=== PATIENT | male | born 1995 | race African-American/Black ===

== ENCOUNTER 2023-03-07 13:50 | Observation (INO) ==
[2023-03-07] MEDS ORDERED: SODIUM CHLORIDE 0.9% 1,000 ML IV STA (14:00)
[2023-03-07] MEDS ORDERED: ONDANSETRON INJ 2 MG/ML 2 ML VIAL IV STA ×2 (14:25→16:06)
[2023-03-07] MEDS ORDERED: ACETAMINOPHEN 1,000 MG/100 ML VIAL IV STA (14:25)
--- NOTE | 2023-03-07 14:44 | Emergency Department Note ---
Impression & Plan Abdominal pain, Nausea & vomiting ED Provider Note CHIEF COMPLAINT: Abdominal pain HISTORY OF PRESENT ILLNESS: This 27 year old male patient presents to the emergency department via private vehicle for evaluation of abdominal pain. Pt. states symptoms started early this morning. Pt. states the pain is in the middle of the abdomen. Does admit to drinking 4 beers last night. States the pain is severe and there is nausea and vomiting associated with the pain. The patient states that he has never had any abdominal surgeries. Has never had similar symptoms. Patient denies any diarrhea or constipation. No vomiting blood. He has had a sore throat for the past 2 days. No fever or other illness. No dysuria, urinary frequency, urinary hesitancy, hematuria REVIEW OF SYSTEMS: A 10 system review of systems was performed with positives and pertinent negatives listed in the history of present illness. All other systems were reviewed and are negative. ALLERGIES: NKDA PHYSICAL EXAM: VITALS: Vitals are noted on the nurse's note and reviewed by myself. Vital signs stable. GENERAL: This is a 27-year-old male, in no acute distress, nondiaphoretic, well- developed well-nourished. SKIN: The skin was without rashes, erythema, edema, or bruising. There is no tenting of the skin. Capillary refill less than 2 seconds. HEAD: Normocephalic atraumatic. EYES: Conjunctivae without injection, sclerae without icterus. NECK: Supple without nuchal rigidity. No lymphadenopathy. No JVD. HEART: Regular rate and rhythm without murmurs gallops or rubs. LUNGS: Clear to auscultation bilaterally without wheezes, rales or rhonchi. No retractions or accessory muscle use. ABDOMEN: Positive bowel sounds x 4. Periumbilical tenderness to palpation. No tenderness over McBurney's point. Abdomen is otherwise soft, nontender, without masses or organomegaly. Castellanos sign negative. No guarding or rebound tenderness. MUSCULOSKELETAL: No muscle atrophy, erythema, or edema noted. Full range of motion without joint tenderness in all extremities. No tenderness to palpation. Normal gait. Strength 5/5 throughout. NEURO: Patient was alert and oriented to person place and time. No focal neurological deficits. An order was placed for continuous cardiac catheterization technician. The monitor showed a normal sinus rhythm at a ventricular rate of 95 bpm, per my interpretation. EMERGENCY DEPARTMENT COURSE: The patient was seen and evaluated as above. The patient is here with abdominal pain. This was periumbilical which started suddenly this morning. It was associated with intractable nausea and vomiting. The patient presents to the emergency department for evaluation. On initial evaluation, the patient is tachycardic. He is afebrile. IV access was obtained, labs are drawn. Patient was medicated with IV fluids and Zofran. Labs were reviewed. Per my interpretation, there is a mild leukocytosis of 11,000. No anemia or thrombocytopenia. Renal, hepatic function and electrolytes without significant abnormality. Bilirubin mildly elevated at 1.4. Urinalysis positive for 3+ ketones, no bladder infection. Urine drug screen positive for marijuana. CT imaging performed reviewed by myself radiologist as noted. There were no acute findings, though the stomach was somewhat distended and fluid-filled. On re-evaluation, the patient continued to complain of nausea and abdominal p ain. He was given a second liter of IV fluids and Zofran. Patient was medicated with Toradol and acetaminophen while here. Patient was reassessed. He is starting to feel somewhat better. We did a p.o. trial with a cup of water. The patient drank the water and shortly thereafter complained of severe abdominal cramping and pain. He was requesting additional water and nursing staff was advised to hold any further p.o. intake at this time. Patient was again reassessed. I was notified at this time that the patient had vomited approximately 1300 cc brown in color but clear liquid. No coffee ground emesis. I did assess the patient. He is complaining of persistent nausea and worsening abdominal pain. I discussed the case with my attending physician. Repeat CBC was completed. Nursing staff asked that I order a Gastroccult study on the emesis to evaluate for blood. This was placed. This test was negative. Patient was medicated with IV Reglan and Benadryl. He was given 4 mg IV morphine. Patient was again reassessed. He states he is starting to feel somewhat better. At this time, he remains tachycardic. He has not had any further episodes of vomiting. I did recommend admission due to his persistent pain, tachycardia, and nausea/vomiting. The patient was agreeable. Unclear whether the patient's symptoms may be associated with gastroenteritis, gastroparesis, cyclic vomiting, or others. Do recommend admission/observation to determine whether or not the patient's symptoms improved. I discussed the case with Manuelito Ingram PA-C with [facility]. He did agree to see and evaluate the patient. Please see hospitalist dictation regarding ongoing management care of this patient. Differential diagnosis includes appendicitis, diverticulitis, obstruction, inflammatory bowel disease, renal colic, PUD, biliary pathology, pancreatitis, mesenteric ischemia, aortic pathology, infections, genitourinary, UTI, perforated viscus, as well as others were entertained. I attest that I have personally reviewed the patient's current medication list. Patient was found to have an elevated blood pressure and was referred to their primary doctor for recheck and further treatment. The chart was completed utilizing [employer] voice recognition software. Grammatical errors, random word insertions, pronoun errors, and incomplete sentences are an occasional consequence of this system due to software limitations, ambient noise, and hardware issues. Any formal questions or concerns about the content, text, or information contained within the body of th is dictation should be directly addressed to the provider for clarification. Past Med/Surg History Medical History No pertinent past medical history Social History Smoking Status: Current every day smoker Preferred Language: Bulgarian Feels Safe at Home: Yes Allergies Allergies Allergy/AdvReac Type Severity Reaction Status Date / Time No Known Allergies Allergy Unverified 03/07/23 19:35 Home Meds Home Medications Medication Instructions Recorded Confirmed None (Patient States No Home Meds) ##0 10/20/10 Results & Data (ED) Vital Signs Vital Signs - 24 hr 03/07/23 13:53 03/07/23 14:00 03/07/23 14:21 Temperature 35.8 C L Temperature Source Temporal Artery Scan Pulse Rate 95 H 104 H 103 H Pulse Rate from SpO2 Sensor Pulse Rhythm Regular Regular Pulse Strength Normal Respiratory Rate 22 27 H 27 H Respiratory Depth Normal Blood Pressure 148/102 H Blood Pressure Mean 117 Blood Pressure Position Sitting Pulse Oximetry 97 100 Oxygen Delivery Method Room Air Room Air Oxygen Flow Rate Sepsis Recent Fever Within 48 Hours No Sepsis New/Unexplained Change in Mental Status No Sepsis Action Taken by Nursing No Action Required 03/07/23 14:25 03/07/23 14:30 03/07/23 14:40 Temperature Temperature Source Pulse Rate 100 H 81 78 Pulse Rate from SpO2 Sensor 99 H 90 74 Pulse Rhythm Pulse Strength Respiratory Rate 23 40 H 23 Respiratory Depth Blood Pressure 136/90 Blood Pressure Mean 105 Blood Pressure Position Pulse Oximetry 99 100 97 Oxygen Delivery Method Oxygen Flow Rate Sepsis Recent Fever Within 48 Hours Sepsis New/Unexplained Change in Mental Status Sepsis Action Taken by Nursing 03/07/23 14:50 03/07/23 15:00 03/07/23 15:10 Temperature Temperature Source Pulse Rate 72 56 L 65 Pulse Rate from SpO2 Sensor 70 57 L 65 Pulse Rhythm Pulse Strength Respiratory Rate 19 9 L 21 Respiratory Depth Blood Pressure Blood Pressure Mean Blood Pressure Position Pulse Oximetry 98 66 L 98 Oxygen Delivery Method Room Air Nasal Cannula Oxygen Flow Rate 2 Sepsis Recent Fever Within 48 Hours Sepsis New/Unexplained Change in Mental Status Sepsis Action Taken by Nursing 03/07/23 15:24 03/07/23 15:30 03/07/23 15:40 Temperature Temperature Source Pulse Rate 91 H 85 87 Pulse Rate from SpO2 Sensor 92 H 85 90 Pulse Rhythm Pulse Strength Respiratory Rate 16 19 20 Respiratory Depth Blood Pressure Blood Pressure Mean Blood Pressure Position Pulse Oximetry 98 98 99 Oxygen Delivery Method Nasal Cannula Oxygen Flow Rate 2 Sepsis Recent Fever Within 48 Hours Sepsis New/Unexplained Change in Mental Status Sepsis Action Taken by Nursing 03/07/23 15:50 03/07/23 16:00 03/07/23 16:04 Temperature Temperature Source Pulse Rate 72 106 H 94 H Pulse Rate from SpO2 Sensor 70 106 H 94 H Pulse Rhythm Pulse Strength Respiratory Rate 11 L 20 20 Respiratory Depth Blood Pressure 161/102 H Blood Pressure Mean 121 Blood Pressure Position Pulse Oximetry 100 100 100 Oxygen Delivery Method Oxygen Flow Rate Sepsis Recent Fever Within 48 Hours Sepsis New/Unexplained Change in Mental Status Sepsis Action Taken by Nursing 03/07/23 16:10 03/07/23 16:20 03/07/23 16:29 Temperature Temperature Source Pulse Rate 97 H 98 H Pulse Rate from SpO2 Sensor 99 H 97 H Pulse Rhythm Pulse Strength Respiratory Rate 22 19 Respiratory Depth Blood Pressure 145/94 H Blood Pressure Mean 112 Blood Pressure Position Pulse Oximetry 96 100 Oxygen Delivery Method Oxygen Flow Rate Sepsis Recent Fever Within 48 Hours Sepsis New/Unexplained Change in Mental Status Sepsis Action Taken by Nursing 03/07/23 16:29 03/07/23 16:30 03/07/23 16:40 Temperature Temperature Source Pulse Rate 68 55 L 73 Pulse Rate from SpO2 Sensor 68 61 71 Pulse Rhythm Pulse Strength Respiratory Rate 17 14 14 Respiratory Depth Blood Pressure Blood Pressure Mean Blood Pressure Position Pulse Oximetry 99 98 85 L Oxygen Delivery Method Room Air Oxygen Flow Rate Sepsis Recent Fever Within 48 Hours Sepsis New/Unexplained Change in Mental Status Sepsis Action Taken by Nursing 03/07/23 16:50 03/07/23 17:00 03/07/23 17:10 Temperature Temperature Source Pulse Rate 78 91 H 89 Pulse Rate from SpO2 Sensor 88 90 91 H Pulse Rhythm Pulse Strength Respiratory Rate 25 H 22 19 Respiratory Depth Blood Pressure Blood Pressure Mean Blood Pressure Position Pulse Oximetry 93 96 97 Oxygen Delivery Method Nasal Cannula Nasal Cannula Oxygen Flow Rate 2 2 Sepsis Recent Fever Within 48 Hours Sepsis New/Unexplained Change in Mental Status Sepsis Action Taken by Nursing 03/07/23 17:20 03/07/23 17:30 03/07/23 17:40 Temperature Temperature Source Pulse Rate 102 H 106 H 92 H Pulse Rate from SpO2 Sensor 100 H 105 H 93 H Pulse Rhythm Pulse Strength Respiratory Rate 12 19 20 Respiratory Depth Blood Pressure Blood Pressure Mean Blood Pressure Position Pulse Oximetry 98 100 98 Oxygen Delivery Method Nasal Cannula Oxygen Flow Rate 2 Sepsis Recent Fever Within 48 Hours Sepsis New/Unexplained Change in Mental Status Sepsis Action Taken by Nursing 03/07/23 17:50 03/07/23 18:00 03/07/23 18:10 Temperature Temperature Source Pulse Rate 85 83 86 Pulse Rate from SpO2 Sensor 85 82 81 Pulse Rhythm Pulse Strength Respiratory Rate 20 15 17 Respiratory Depth Blood Pressure Blood Pressure Mean Blood Pressure Position Pulse Oximetry 99 100 98 Oxygen Delivery Method Nasal Cannula Oxygen Flow Rate 2 Sepsis Recent Fever Within 48 Hours Sepsis New/Unexplained Change in Mental Status Sepsis Action Taken by Nursing 03/07/23 18:20 03/07/23 18:30 03/07/23 18:40 Temperature Temperature Source Pulse Rate 93 H 90 Pulse Rate from SpO2 Sensor 96 H 92 H Pulse Rhythm Pulse Strength Respiratory Rate 4 L 16 Respiratory Depth Blood Pressure 135/92 Blood Pressure Mean 105 Blood Pressure Position Pulse Oximetry 99 99 Oxygen Delivery Method Nasal Cannula Nasal Cannula Oxygen Flow Rate 2 2 Sepsis Recent Fever Within 48 Hours Sepsis New/Unexplained Change in Mental Status Sepsis Action Taken by Nursing 03/07/23 18:40 Temperature Temperature Source Pulse Rate 101 H Pulse Rate from SpO2 Sensor 100 H Pulse Rhythm Pulse Strength Respiratory Rate 15 Respiratory Depth Blood Pressure Blood Pressure Mean Blood Pressure Position Pulse Oximetry 100 Oxygen Delivery Method Nasal Cannula Oxygen Flow Rate 2 Sepsis Recent Fever Within 48 Hours Sepsis New/Unexplained Change in Mental Status Sepsis Action Taken by Nursing Laboratory Data 03/07/23 14:20 03/07/23 14:20 Lab Results 03/07/23 03/07/23 03/07/23 Range/Units 14:20 14:20 19:38 WBC 11.65 H 14.75 H (4.8-10.8) K/ul RBC 5.84 5.05 (4.70-6.10) M/uL Hgb 17.9 15.6 (14.0-18.0) g/dl Hct 48.1 42.2 (42.0-52.0) % MCV 82.4 83.6 (80.0-100.0) fL MCH 30.7 30.9 (25.0-34.0) pg MCHC 37.2 H 37.0 H (32.0-36.0) g/dL RDW Std Deviation 37.2 38.9 (36.4-46.3) fL RDW Coeff of Edwin 12.5 12.8 (11.5-14.5) % Plt Count 249 310 (130-400) K/uL MPV 10.2 9.8 (9.4-12.4) fL Immature Gran % (Auto) 0.3 0.3 % Neut % (Auto) 89.7 88.1 % Lymph % (Auto) 5.7 5.5 % [place] % (Auto) 3.9 5.7 % Eos % (Auto) 0.0 0.1 % Baso % (Auto) 0.4 0.3 % Neut # (Auto) 10.45 H 12.99 H (1.40-6.50) K/uL Lymph # (Auto) 0.66 L 0.81 L (1.20-3.40) K/uL Rout[place] # (Auto) 0.45 0.84 H (0.11-0.59) K/uL Eos # (Auto) 0.00 0.01 (0.00-0.50) K/uL Baso # (Auto) 0.05 0.05 (0.00-0.20) K/uL Immature Gran # (Auto) 0.04 0.05 (0.01-0.20) K/uL Platelet Estimate Normal (Normal) Sodium 136 (136-145) mmol/L Potassium 3.7 (3.5-5.1) mmol/L Chloride 100 (98-107) mmol/L Carbon Dioxide 19 L (21-32) mmol/L Anion Gap 17 H (3-11) BUN 13 (6-23) mg/dl Creatinine 0.90 (0.6-1.4) mg/dl Est Cr Clr Drug Dosing 140.7 ml/min Est GFR ( Amer) 133.3 ml/min Est GFR (Non-Af Amer) 115.0 ml/min BUN/Creatinine Ratio 14.4 (10-20) Glucose 88 (70-99(Fasting)) mg/dl Calcium 10.4 H (8.6-10.3) mg/dl Total Bilirubin 1.4 H (0.2-1.0) mg/dl AST 27 (13-39) U/L ALT 25 (7-52) U/L Alkaline Phosphatase 62 (34-104) U/L Total Protein 9.5 H (6.0-8.3) gm/dl Albumin 5.2 H (3.4-5.0) gm/dl Globulin 4.3 H (2.5-4.0) gm/dl Albumin/Globulin Ratio 1.2 (0.9-2) Lipase 6 L (11-82) U/L Urine Color Urine Appearance (Clear) Urine pH (4.5-7.5) Ur Specific [place] (1.000-1.030) Urine Protein (Negative) Urine Glucose (UA) (Negative) Urine Ketones (Negative) Urine Blood (Negative) Urine Nitrite (Negative) Urine Bilirubin (Negative) Urine Urobilinogen (Negative) Ur Leukocyte Esterase (Negative) Urine WBC (Auto) (0-5) /hpf Urine RBC (Auto) (0-4) /hpf U Hyaline Cast (Auto) (0-5) /lpf U Epithel Cells (Auto) (0-5) /lpf Urine Bacteria (Auto) (Negative) Gastric Fluid pH Gastric Occult Blood (Negative) Urine Opiates Screen (Neg) Ur Methadone, Qual (Neg) Urine Barbiturates (Neg) Ur Phencyclidine (PCP) (Neg) U Amphetamin/Meth Scrn (Neg) MDMA (Ecstasy) Screen (Neg) U Benzodiazepines Scrn (Neg) Ur Cocaine Metabolite (Neg) U Marijuana (THC) Screen (Neg) 03/07/23 03/07/23 03/07/23 Range/Units Unknown Unknown Unknown WBC (4.8-10.8) K/ul RBC (4.70-6.10) M/uL Hgb (14.0-18.0) g/dl Hct (42.0-52.0) % MCV (80.0-100.0) fL MCH (25.0-34.0) pg MCHC (32.0-36.0) g/dL RDW Std Deviation (36.4-46.3) fL RDW Coeff of Edwin (11.5-14.5) % Plt Count (130-400) K/uL MPV (9.4-12.4) fL Immature Gran % (Auto) % Neut % (Auto) % Lymph % (Auto) % [place] % (Auto) % Eos % (Auto) % Baso % (Auto) % Neut # (Auto) (1.40-6.50) K/uL Lymph # (Auto) (1.20-3.40) K/uL [place] # (Auto) (0.11-0.59) K/uL Eos # (Auto) (0.00-0.50) K/uL Baso # (Auto) (0.00-0.20) K/uL Immature Gran # (Auto) (0.01-0.20) K/uL Platelet Estimate (Normal) Sodium (136-145) mmol/L Potassium (3.5-5.1) mmol/L Chloride (98-107) mmol/L Carbon Dioxide (21-32) mmol/L Anion Gap (3-11) BUN (6-23) mg/dl Creatinine (0.6-1.4) mg/dl Est Cr Clr Drug Dosing ml/min Est GFR ( Amer) ml/min Est GFR (Non-Af Amer) ml/min BUN/Creatinine Ratio (10-20) Glucose (70-99(Fasting)) mg/dl Calcium (8.6-10.3) mg/dl Total Bilirubin (0.2-1.0) mg/dl AST (13-39) U/L ALT (7-52) U/L Alkaline Phosphatase (34-104) U/L Total Protein (6.0-8.3) gm/dl Albumin (3.4-5.0) gm/dl Globulin (2.5-4.0) gm/dl Albumin/Globulin Ratio (0.9-2) Lipase (11-82) U/L Urine Color Yellow Urine Appearance Clear (Clear) Urine pH 8.0 H (4.5-7.5) Ur Specific [place] > 1.045 H (1.000-1.030) Urine Protein 1+ H (Negative) Urine Glucose (UA) Negative (Negative) Urine Ketones 3+ H (Negative) Urine Blood Negative (Negative) Urine Nitrite Negative (Negative) Urine Bilirubin Negative (Negative) Urine Urobilinogen Negative (Negative) Ur Leukocyte Esterase Negative (Negative) Urine WBC (Auto) 1-5 (0-5) /hpf Urine RBC (Auto) 0-4 (0-4) /hpf U Hyaline Cast (Auto) 1-5 (0-5) /lpf U Epithel Cells (Auto) >30 H (0-5) /lpf Urine Bacteria (Auto) Negative (Negative) Gastric Fluid pH 2 Gastric Occult Blood Negative (Negative) Urine Opiates Screen Neg (Neg) Ur Methadone, Qual Neg (Neg) Urine Barbiturates Neg (Neg) Ur Phencyclidine (PCP) Neg (Neg) U Amphetamin/Meth Scrn Neg (Neg) MDMA (Ecstasy) Screen Neg (Neg) U Benzodiazepines Scrn Neg (Neg) Ur Cocaine Metabolite Neg (Neg) U Marijuana (THC) Screen Pos H (Neg) Administered Medications Discontinued Medications Diphenhydramine HCl (Diphenhydramine 50 Mg/Ml Vial) 12.5 mg IV NOW STA Stop: 03/07/23 18:07 Last Admin: 03/07/23 18:21 Dose: 12.5 mg Documented By: STATISTICAL MACHINE SERVICER Sodium Chloride (Nss) 1,000 mls @ 999 mls/hr IV .Q1H1M STA Stop: 03/07/23 15:00 Last Infusion: 03/07/23 16:14 Dose: 0 mls/hr Documented By: STATISTICAL MACHINE SERVICER Admin: 03/07/23 14:40 Dose: 999 mls/hr Documented By: STATISTICAL MACHINE SERVICER Acetaminophen (Ofirmev) 1,000 mg in 100 mls @ 400 mls/hr IV NOW STA Stop: 03/07/23 14:39 Last Infusion: 03/07/23 15:01 Dose: 0 mls/hr Documented By: STATISTICAL MACHINE SERVICER Admin: 03/07/23 14:36 Dose: 400 mls/hr Documented By: SARATH Sodium Chloride (Nss) 1,000 mls @ 999 mls/hr IV .Q1H1M ONE Stop: 03/07/23 17:42 Last Infusion: 03/07/23 18:03 Dose: 0 mls/hr Documented By: STATISTICAL MACHINE SERVICER Admin: 03/07/23 16:52 Dose: 999 mls/hr Documented By: CARINE Ioversol (Optiray 320 100ml) 94 ml IV ONCE ONE Stop: 03/07/23 15:23 Last Admin: 03/07/23 15:22 Dose: 94 ml Documented By: RIZWANA Ketorolac Tromethamine (Ketorolac Tromethamine 15 Mg/Ml Vial) 15 mg IV NOW STA Stop: 03/07/23 16:07 Last Admin: 03/07/23 16:20 Dose: 15 mg Documented By: SARATH Metoclopramide HCl (Metoclopramide Hcl Inj 5 Mg/Ml 2 Ml Vial) 10 mg IV NOW STA Stop: 03/07/23 18:07 Last Admin: 03/07/23 18:21 Dose: 10 mg Documented By: STATISTICAL MACHINE SERVICER Morphine Sulfate (Morphine Sulfate 4 Mg/Ml 1 Ml Carp\Vial) 4 mg IV NOW STA Stop: 03/07/23 18:04 Last Admin: 03/07/23 18:21 Dose: 4 mg Documented By: STATISTICAL MACHINE SERVICER Ondansetron HCl (Ondansetron Inj 2 Mg/Ml 2 Ml Vial) 4 mg IV NOW STA Stop: 03/07/23 14:26 Last Admin: 03/07/23 14:37 Dose: 4 mg Documented By: STATISTICAL MACHINE SERVICER Ondansetron HCl (Ondansetron Inj 2 Mg/Ml 2 Ml Vial) 4 mg IV NOW STA Stop: 03/07/23 16:07 Last Admin: 03/07/23 16:20 Dose: 4 mg Documented By: STATISTICAL MACHINE SERVICER Imaging Data Radiologist's Impression: Chest X-Ray 03/07/23 14:01 XR chest 1V portable CLINICAL HISTORY: Epigastric pain. COMPARISON STUDY: No previous studies for comparison. FINDINGS: Lung volumes are normal. Lungs are clear. There is no pneumothorax or pleural effusion. Cardiac size is normal. Mediastinal contours are normal. There is no evidence for pulmonary edema. IMPRESSION: No acute cardiopulmonary findings. ACT 112: Negative or not required by law. Electronically signed by: Taiwo Stock M.D. 03/07/2023 3:34 PM Abdomen/Pelvis CT 03/07/23 14:25 CT OF THE ABDOMEN AND PELVIS WITH CONTRAST CLINICAL HISTORY: Periumbilical pain. COMPARISON STUDY: None. TECHNIQUE: Following IV administration of 94 mL of Optiray, axial images of the abdomen and pelvis were obtained from the lung bases to the proximal femurs. Images were reviewed in the axial, sagittal, and coronal planes. IV contrast was administered without complication. Automated exposure control was utilized for the study. A dose lowering technique was utilized adhering to the principles of ALARA. CT DOSE: 1487.08 mGy.cm FINDINGS: Lung bases are unremarkable. No pneumatosis, free air or portal venous gas is present. An 8 mm hypodense segment 7 hepatic lesion is too small to characterize but is likely benign. Stomach is mildly distended and fluid-filled. Spleen, adrenal glands, kidneys and pancreas are unremarkable. There is no biliary or pancreatic ductal dilatation. There is no peripancreatic or pericholecystic infiltration. There is no hydronephrosis. 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 The appendix is normal. The caliber and wall thickness of small and large bowel are normal. There is no ascites or l ymphadenopathy. No fluid collections are identified. Major vasculature is patent. IMPRESSION: 1. Normal appendix. No bowel obstruction. No bowel wall thickening. 2. Mildly distended, fluid-filled stomach. ACT 112: Negative or not required by law. Electronically signed by: Taiwo Stock M.D. 03/07/2023 3:30 PM Discharge Plan Visit Data Chief Complaint: Abdominal Pain Stated Complaint: ABDOMINAL PAIN ED Provider: Ayaka Tinsley ED Midlevel Provider: Raven Freeman Discharge Problem: Abdominal pain, Nausea & vomiting Patient Disposition: Admitted As Inpatient Forms Stand Alone Forms: [facility], [facility] Emergency Department, Important Visit Information Prescriptions Prescriptions: No Action None (Patient States No Home Meds) . Qty: 0 Referrals Referrals: PCP,NO [Primary Care Provider] -
[2023-03-07 14:52] LABS: Albumin Globulin Ratio 1.2 (0.9-2); Albumin Level 5.2 gm/dl (3.4-5.0); BUN Creatinine Ratio 14.4 (10-20); Bilirubin,Total 1.4 mg/dl (0.2-1.0); Calcium 10.4 mg/dl (8.6-10.3); Creatinine Clr Calc Pharmacy 140.7 ml/min; Est GFR (African American) 133.3 ml/min; Globulin 4.3 gm/dl (2.5-4.0); Potassium 3.7 mmol/L (3.5-5.1); Total Protein 9.5 gm/dl (6.0-8.3)
[2023-03-07 15:05] LABS: Basophils # (auto) 0.05 K/uL (0.00-0.20); Basophils % (auto) 0.4 %; Hematocrit (blood only) 48.1 % (42.0-52.0); Hemoglobin 17.9 g/dl (14.0-18.0); Immature Granulocytes # (auto) 0.04 K/uL (0.01-0.20); Immature Granulocytes % (auto) 0.3 %; Lymphocytes # (auto) 0.66 K/uL (1.20-3.40); Lymphocytes % (auto) 5.7 %; Mean Corpuscular Hemoglobin 30.7 pg (25.0-34.0); Mean Corpuscular Hgb Conc 37.2 g/dL (32.0-36.0); Mean Corpuscular Volume 82.4 fL (80.0-100.0); Mean Platelet Volume 10.2 fL (9.4-12.4); Monocytes # (auto) 0.45 K/uL (0.11-0.59); Monocytes % (auto) 3.9 %; Neutrophils # (auto) 10.45 K/uL (1.40-6.50); Neutrophils % (auto) 89.7 %; Platelet Count 249 K/uL (130-400); Platelet Estimate Normal (Normal); RDW Coefficient of Variation 12.5 % (11.5-14.5); RDW Standard Deviation 37.2 fL (36.4-46.3); Red Blood Count 5.84 M/uL (4.70-6.10); White Blood Count 11.65 K/ul (4.8-10.8)
[2023-03-07] MEDS ORDERED: OPTIRAY 320 100ml IV ONE (15:22)
--- NOTE | 2023-03-07 15:32 | CT Scan Report ---
CT OF THE ABDOMEN AND PELVIS WITH CONTRAST CLINICAL HISTORY: Periumbilical pain. COMPARISON STUDY: None. TECHNIQUE: Following IV administration of 94 mL of Optiray, axial images of the abdomen and pelvis we re obtained from the lung bases to the proximal femurs. Images were reviewed in the axial, sagittal, and coronal planes. IV contrast was administered without complication. Automated exposure control wa s utilized for the study. A dose lowering technique was utilized adhering to the principles of ALARA . CT DOSE: 1487.08 mGy.cm FINDINGS: Lung bases are unremarkable. No pneumatosis, free air or portal venous gas is present. An 8 mm hypodense segment 7 hepatic lesion is too small to characterize but is likely benign. Stomach is mildly distended and fluid-filled. Spleen, adrenal glands, kidneys and pancreas are unremarkable. The re is no biliary or pancreatic ductal dilatation. There is no peripancreatic or pericholecystic infil tration. There is no hydronephrosis. 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 The appendix is normal. The caliber and wall thickness of small and large bowel are normal. There is no ascites or lymphadenopathy. No fluid collections are identified. Major vasculature is patent. IMPRESSION: 1. Normal appendix. No bowel obstruction. No bowel wall thickening. 2. Mildly distended, fluid-filled stomach. ACT 112: Negative or not required by law. Electronically signed by: Taiwo Stock M.D. 03/07/2023 3:30 PM
--- NOTE | 2023-03-07 15:35 | XRay Report ---
XR chest 1V portable CLINICAL HISTORY: Epigastric pain. COMPARISON STUDY: No previous studies for comparison. FINDINGS: Lung volumes are normal. Lungs are clear. There is no pneumothorax or pleural effusion. Car diac size is normal. Mediastinal contours are normal. There is no evidence for pulmonary edema. IMPRESSION: No acute cardiopulmonary findings. ACT 112: Negative or not required by law. Electronically signed by: Taiwo Stock M.D. 03/07/2023 3:34 PM
[2023-03-07] MEDS ORDERED: KETOROLAC TROMETHAMINE 15 MG/ML VIAL IV STA (16:06)
[2023-03-07 16:22] LABS: Appearance Urine Clear (Clear); Bacteria Urine Automated Negative (Negative); Bilirubin Urine Negative (Negative); Blood Urine Negative (Negative); Color Urine Yellow; Epithelial Cell Urine Auto >30 /lpf (0-5); Glucose Urine UA Negative (Negative); Ketones Urine 3+ (Negative); Leukocyte Esterase Urine Negative (Negative); Nitrite Urine Negative (Negative); Protein Urine 1+ (Negative); RBC Urine Automated 0-4 /hpf (0-4); Specific Gravity Urine > 1.045 (1.000-1.030); Urobilinogen Urine Negative (Negative)
[2023-03-07] MEDS ORDERED: SODIUM CHLORIDE 0.9% 1,000 ML IV ONE (16:42)
[2023-03-07 16:55] LABS: Amphetamines+Metham, Urine Neg (Neg); Barbiturates, Urine Neg (Neg); Benzodiazepine, Urine Neg (Neg); Cocaine, Urine Neg (Neg); MDMA (Ecstacy), Urine Neg (Neg); Methadone, Urine Neg (Neg); Opiate, Urine Neg (Neg); Phencyclidine, Urine Neg (Neg)
[2023-03-07] MEDS ORDERED: MoRPHine SULFATE 4 MG/ML 1 ML CARP\\VIAL IV STA (18:03)
[2023-03-07] MEDS ORDERED: METOCLOPRAMIDE HCL INJ 5 MG/ML 2 ML VIAL IV STA (18:06)
[2023-03-07] MEDS ORDERED: diphenhydrAMINE 50 MG/ML VIAL IV STA (18:06)
[2023-03-07 18:34] LABS: Gastric Occult Blood Negative (Negative); pH Gastric Fluid 2
[2023-03-07 19:56] LABS: Basophils # (auto) 0.05 K/uL (0.00-0.20); Basophils % (auto) 0.3 %; Eosinophils # (auto) 0.01 K/uL (0.00-0.50); Eosinophils % (auto) 0.1 %; Hematocrit (blood only) 42.2 % (42.0-52.0); Hemoglobin 15.6 g/dl (14.0-18.0); Immature Granulocytes # (auto) 0.05 K/uL (0.01-0.20); Immature Granulocytes % (auto) 0.3 %; Lymphocytes # (auto) 0.81 K/uL (1.20-3.40); Lymphocytes % (auto) 5.5 %; Mean Corpuscular Hemoglobin 30.9 pg (25.0-34.0); Mean Corpuscular Volume 83.6 fL (80.0-100.0); Mean Platelet Volume 9.8 fL (9.4-12.4); Monocytes # (auto) 0.84 K/uL (0.11-0.59); Monocytes % (auto) 5.7 %; Neutrophils # (auto) 12.99 K/uL (1.40-6.50); Neutrophils % (auto) 88.1 %; Platelet Count 310 K/uL (130-400); RDW Coefficient of Variation 12.8 % (11.5-14.5); RDW Standard Deviation 38.9 fL (36.4-46.3); Red Blood Count 5.05 M/uL (4.70-6.10); White Blood Count 14.75 K/ul (4.8-10.8)
--- NOTE | 2023-03-07 20:41 | History & Physical Report ---
Date of Service March 07, 2023 Assessment & Plan (1) Abdominal pain: Plan: -Admit to med/surge -Currently stable on RA with symptoms currently improved -At this time the patient's abd pain is most likely due to gastroenteritis -Has been afebrile and non-toxic appearing -Continue tylenol for pain control -Continue IV fluids overnight for hydration -Prn Reglan and topical capsaicin for for pain -BL SCD's for DVT PPX -Clear liquids -AM CBC CMP (2) Nausea & vomiting: Plan: -Differential includes gastroenteritis, cannabis hyperemesis syndrome, and gastroparesis -CT of the abd/pelvis was negative for infection/obstruction, initially noted fluid in the stomach, however he had a large amount of emesis after the CT -Continue IV fluids, prn Reglan and capsaicin due to reaction to Zofran in the ED (3) High anion gap metabolic acidosis: Plan: -Patient appears dehydrated on exam but stable -Continue IV fluids (4) Hypoxia: Plan: -Patient had 2 episodes of transient hypoxia immediately after receiving IV zofran in the ED -Nurses confirm these episodes were prior to his large episode of vomiting, patient appeared to be fatigued during the episodes, and patient has been stable on RA while awake -Patient confirms he smokes approximately 1 PPD and smokes marijuana daily, he also confirms he snores while sleeping -Likely related to falling asleep and shallow respirations due to abd pain -Continue to monitor on tele, incentive spirometry Plan The patient was discussed with Dr. Pak at the time of the exam History of Present Illness Chief Complaint: Abd pain, nausea, vomiting Primary Care Provider: NO PCP Jameel is a 27 year old male with a PMH significant for tobacco abuse who presented to the [facility] ED on 03/07 with complaints of abd pain, nausea, and vomiting. In the ED he was noted to be tachycardic at 106 but otherwise stable. ED staff reported that he desaturated into the 60's on RA while sleeping at 2 separate times so he was placed on 2L NC. Labs were significant for a leukocytosis of 14 with neutrophil predominance of 12.99, AG of 17 with bicarb of 19, calcium of 10.4, total bili of 1.4 with other LFT's WNL, negative lipase, and tox screen positive for Marijuana. Chest xray was negative for acute findings. CT of the abd/pelvis with contrast was read as "1. Normal appendix. No bowel obstruction. No bowel wall thickening. 2. Mildly distended, fluid-filled stomach.". The patient was given a total of 8 mg IV zofran, 2L NSS, 12.5 mg IV benadryl, 15 mg IV toradol, 10 mg IV reglan, and 4 mg IV morphine. The ED explained that the patient vomited approximately 1300 cc of brown liquid emesis which was occult blood negative. At the time of the exam the patient was lying in bed in no acute distress. He states that he came into town for a wedding. Last night he was in his normal state of health, he had approximately 4-5 beers and ate a cheeseburger and fries from [employer]. This am he woke with significant mid-lower abdominal pain, nausea, and non-bloody emesis. He abdominal pain was generalized and has not r adiated anywhere else. He denies recent fevers, chest pain, SOB, cough, hematemesis, diarrhea, dysuria, hematuria melena, LE swelling, and recent trauma. He smokes approximately 1 pack of cigarettes daily, smokes marijuana daily, and denies consistent alcohol use. He denies experiencing similar symptoms in the past with Marijuana use. His symptoms are significantly improved at the time of the exam. Please refer to Dr. Pak's attestation for any changes to the treatment plan Allergies Allergy/AdvReac Type Severity Reaction Status Date / Time zofran AdvReac Intermediate Difficulty Uncoded 03/07/23 20:57 Breathing Home Medications Medication Instructions Recorded Confirmed Type None (Patient States No Home Meds) ##0 10/20/10 History Past Med/Surg History Medical History No pertinent past medical history Social History Smoking Status: Current every day smoker Tobacco Type: Cigarettes Hx Alcohol Use: Yes Alcohol type: beer Hx Substance Use: Yes Last Used Substance: Just Prior to Arrival Preferred Language: [place] [employer] Required: No Beliefs That Will Affect Care: None Current Living Situation: Alone Feels Safe at Home: Yes Review of Systems Review of Systems: All systems reviewed & are unremarkable except as noted in HPI & below Physical Exam Physical Exam: Physical Exam: General: In no acute distress, stated age, well-nourished, non-toxic appearing HEENT: Normocephalic, atraumatic, no scleral icterus, pupils around round, symmetrical, and reactive to light, moist mucus membranes, trachea midline, no thyromegaly Chest/Pulm: No respiratory distress, symmetrical chest expansion, clear breath sounds throughout Cardiac: RRR, no murmurs noted Abdomen: Negative for ascites and bruising, normoactive bowel sounds, soft, mildly tender to palpation in the lower abdomen without rebound tenderness Musculoskeletal: Symmetrical and without signs of acute trauma, upper and lower extremities with full ROM, no atrophy, spasticity, or flaccidity Extremities: Radial, dorsalis pedis, and posterior tibial pulses are intact and symmetrical, no edema noted in the BL LE's Skin: Warm, dry, no rashes , lesions, or scars noted Neuro: Alert and oriented to person, place, month, year, and president, no focal defects, no tremors noted Psych: No acute distress, calm and cooperative during the exam Results & Data Results & Data Vital Signs (Past 12 Hours) Vital Signs Temp Pulse Resp BP Pulse Ox O2 Del Method O2 Flow Rate 03/07/23 18:40 101 H 15 100 Nasal Cannula 2 03/07/23 18:40 135/92 03/07/23 18:30 90 16 99 Nasal Cannula 2 03/07/23 18:20 93 H 4 L 99 Nasal Cannula 2 03/07/23 18:10 86 17 98 Nasal Cannula 2 03/07/23 18:00 83 15 100 03/07/23 17:50 85 20 99 03/07/23 17:40 92 H 20 98 03/07/23 17:30 106 H 19 100 Nasal Cannula 2 03/07/23 17:20 102 H 12 98 03/07/23 17:10 89 19 97 03/07/23 17:00 91 H 22 96 Nasal Cannula 2 03/07/23 16:50 78 25 H 93 Nasal Cannula 2 03/07/23 16:40 73 14 85 L Room Air 03/07/23 16:30 55 L 14 98 03/07/23 16:29 68 17 99 03/07/23 16:29 145/94 H 03/07/23 16:20 98 H 19 100 03/07/23 16:10 97 H 22 96 03/07/23 16:04 94 H 20 161/102 H 100 03/07/23 16:00 106 H 20 100 03/07/23 15:50 72 11 L 100 03/07/23 15:40 87 20 99 03/07/23 15:30 85 19 98 03/07/23 15:24 91 H 16 98 Nasal Cannula 2 03/07/23 15:10 65 21 98 Nasal Cannula 2 03/07/23 15:00 56 L 9 L 66 L Room Air 03/07/23 14:50 72 19 98 03/07/23 14:40 78 23 97 03/07/23 14:30 81 40 H 100 03/07/23 14:25 100 H 23 136/90 99 03/07/23 14:21 103 H 27 H 03/07/23 14:00 104 H 27 H 100 Room Air 03/07/23 13:53 35.8 C L 95 H 22 148/102 H 97 Room Air Laboratory Results Abnormal lab results 03/07/23 03/07/23 03/07/23 Range/Units 14:20 14:20 19:38 WBC 11.65 H 14.75 H (4.8-10.8) K/ul MCHC 37.2 H 37.0 H (32.0-36.0) g/dL Neut # (Auto) 10.45 H 12.99 H (1.40-6.50) K/uL Lymph # (Auto) 0.66 L 0.81 L (1.20-3.40) K/uL [place] # (Auto) 0.84 H (0.11-0.59) K/uL Carbon Dioxide 19 L (21-32) mmol/L Anion Gap 17 H (3-11) Calcium 10.4 H (8.6-10.3) mg/dl Total Bilirubin 1.4 H (0.2-1.0) mg/dl Total Protein 9.5 H (6.0-8.3) gm/dl Albumin 5.2 H (3.4-5.0) gm/dl Globulin 4.3 H (2.5-4.0) gm/dl Lipase 6 L (11-82) U/L Urine pH (4.5-7.5) Ur Specific [place] (1.000-1.030) Urine Protein (Negative) Urine Ketones (Negative) U Epithel Cells (Auto) (0-5) /lpf U Marijuana (THC) Screen (Neg) 03/07/23 03/07/23 Range/Units Unknown Unknown WBC (4.8-10.8) K/ul MCHC (32.0-36.0) g/dL Neut # (Auto) (1.40-6.50) K/uL Lymph # (Auto) (1.20-3.40) K/uL [place] # (Auto) (0.11-0.59) K/uL Carbon Dioxide (21-32) mmol/L Anion Gap (3-11) Calcium (8.6-10.3) mg/dl Total Bilirubin (0.2-1.0) mg/dl Total Protein (6.0-8.3) gm/dl Albumin (3.4-5.0) gm/dl Globulin (2.5-4.0) gm/dl Lipase (11-82) U/L Urine pH 8.0 H (4.5-7.5) Ur Specific [place] > 1.045 H (1.000-1.030) Urine Protein 1+ H (Negative) Urine Ketones 3+ H (Negative) U Epithel Cells (Auto) >30 H (0-5) /lpf U Marijuana (THC) Screen Pos H (Neg) Diagnostic Findings Chest X-Ray 03/07/23 14:01 XR chest 1V portable CLINICAL HISTORY: Epigastric pain. COMPARISON STUDY: No previous studies for comparison. FINDINGS: Lung volumes are normal. Lungs are clear. There is no pneumothorax or pleural effusion. Cardiac size is normal. Mediastinal contours are normal. There is no evidence for pulmonary edema. IMPRESSION: No acute cardiopulmonary findings. ACT 112: Negative or not required by law. Electronically signed by: Taiwo Stock M.D. 03/07/2023 3:34 PM Abdomen/Pelvis CT 03/07/23 14:25 CT OF THE ABDOMEN AND PELVIS WITH CONTRAST CLINICAL HISTORY: Periumbilical pain. COMPARISON STUDY: None. TECHNIQUE: Following IV administration of 94 mL of Optiray, axial images of the abdomen and pelvis were obtained from the lung bases to the proximal femurs. Images were reviewed in the axial, sagittal, and coronal planes. IV contrast was administered without complication. Automated exposure control was utilized for the study. A dose lowering technique was utilized adhering to the principles of ALARA. CT DOSE: 1487.08 mGy.cm FINDINGS: Lung bases are unremarkable. No pneumatosis, free air or portal venous gas is present. An 8 mm hypodense segment 7 hepatic lesion is too small to characterize but is likely benign. Stomach is mildly distended and fluid-filled. Spleen, adrenal glands, kidneys and pancreas are unremarkable. There is no biliary or pancreatic ductal dilatation. There is no peripancreatic or pericholecystic infiltration. There is no hydronephrosis. 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 The appendix is normal. The caliber and wall thickness of small and large bowel are normal. There is no ascites or ly mphadenopathy. No fluid collections are identified. Major vasculature is patent. IMPRESSION: 1. Normal appendix. No bowel obstruction. No bowel wall thickening. 2. Mildly distended, fluid-filled stomach. ACT 112: Negative or not required by law. Electronically signed by: Taiwo Stock M.D. 03/07/2023 3:30 PM ECG Additional Comments: Sinus rhythm with marked sinus arrhythmia Otherwise normal ECG No previous ECGs available Code Status & VTE Plan Code Status FUll code VTE Prophylaxis Plan VTE Prophylaxis will be ordered: Yes Supervising Physician Co-Signing Physician Notes Patient seen and examined, chart reviewed, case discussed with MICHELLE Ingram and I agree with the assessment and plan as documented above. In brief, patient is a 27yo male with no significant past medical or surgical history presenting with abdominal pain, nausea and vomiting. On exam patient is afebrile, HD stable, NAD Resting comfortably, reports that nausea and abdominal pain are controlled now Skin - warm, dry, intact, no rashes HEENT - NC/AT, PERRL, MMM Heart - +S1/S2, regular, no m/r/g Lungs - CTA Abd - soft, NT/ND Ext - warm, well perfused Labs and images reviewed WBC=14.75 AGMA with gap of 17, HCO3 of 19 CT abdomen with distended stomach - prior to vomiting Assessment/Plan -Abdominal pain, nausea/vomiting now improved following medications -Admit to medical, continue IVF, Tylenol and Reglan PRN - avoid Zofran as patient developed reaction/transient hypoxia after dose given -Repeat labs in AM -Remainder of plan as above PG Care Time/CCT Total # of Minutes Spent Total Time Spent with Patient: Total time spent is greater than 50% in coordination of care (as documented) at patient's floor/unit and/or counseling patient: [place] [address] INT INP/OBS CARE 2/55MIN Patient Type New Medical Decision Making Moderate Complexity Diagnoses Abdominal pain R10.9 Nausea & vomiting R11.2 High anion gap metabolic acidosis E87.29 Hypoxia R09.02
[2023-03-07] MEDS ORDERED: CAPSAICIN CR 0.075% 60 GM TUBE EXT PRN (21:09)
[2023-03-07] MEDS ORDERED: METOCLOPRAMIDE HCL INJ 5 MG/ML 2 ML VIAL IV PRN (21:12)
[2023-03-07] MEDS ORDERED: FAMOTIDINE 20 MG in SYRINGE 3 ML IV ONE (21:20)
[2023-03-07] MEDS ORDERED: PANTOprazole 40 MG in SYRINGE 0 ML IV ONE (21:30)
[2023-03-07] MEDS: LACTATED RINGER'S 1,000 ML IV SCH (21:54)
[2023-03-08 06:35] LABS: Basophils # (auto) 0.07 K/uL (0.00-0.20); Basophils % (auto) 0.6 %; Eosinophils # (auto) 0.22 K/uL (0.00-0.50); Eosinophils % (auto) 1.8 %; Hematocrit (blood only) 39.9 % (42.0-52.0); Hemoglobin 14.5 g/dl (14.0-18.0); Immature Granulocytes # (auto) 0.03 K/uL (0.01-0.20); Immature Granulocytes % (auto) 0.2 %; Lymphocytes # (auto) 2.27 K/uL (1.20-3.40); Lymphocytes % (auto) 18.8 %; Mean Corpuscular Hemoglobin 30.5 pg (25.0-34.0); Mean Corpuscular Hgb Conc 36.3 g/dL (32.0-36.0); Mean Platelet Volume 10.2 fL (9.4-12.4); Monocytes # (auto) 0.99 K/uL (0.11-0.59); Monocytes % (auto) 8.2 %; Neutrophils # (auto) 8.52 K/uL (1.40-6.50); Neutrophils % (auto) 70.4 %; Platelet Count 277 K/uL (130-400); RDW Coefficient of Variation 13.2 % (11.5-14.5); RDW Standard Deviation 40.1 fL (36.4-46.3); Red Blood Count 4.75 M/uL (4.70-6.10)
[2023-03-08 07:12] LABS: Albumin Globulin Ratio 1.3 (0.9-2); Albumin Level 3.9 gm/dl (3.4-5.0); BUN Creatinine Ratio 16.5 (10-20); Bilirubin,Total 1.3 mg/dl (0.2-1.0); Calcium 9.1 mg/dl (8.6-10.3); Est GFR (African American) 131.5 ml/min; Est GFR (Non-African American) 113.5 ml/min; Magnesium 2.1 mg/dl (1.7-2.4); Potassium 3.6 mmol/L (3.5-5.1); Total Protein 6.9 gm/dl (6.0-8.3)
[2023-03-08] MEDS: LACTATED RINGER'S 1,000 ML IV SCH (08:00)
--- NOTE | 2023-03-08 13:36 | Discharge Summary ---
Date of Service March 08, 2023 Admission HPI Per Admitting Provider Jameel is a 27 year old male with a PMH significant for tobacco abuse who presented to the [facility] ED on 03/07 with complaints of abd pain, nausea, and vomiting. In the ED he was noted to be tachycardic at 106 but otherwise stable. ED staff reported that he desaturated into the 60's on RA while sleeping at 2 separate times so he was placed on 2L NC. Labs were significant for a leukocytosis of 14 with neutrophil predominance of 12.99, AG of 17 with bicarb of 19, calcium of 10.4, total bili of 1.4 with other LFT's WNL, negative lipase, and tox screen positive for Marijuana. Chest xray was negative for acute finding s. CT of the abd/pelvis with contrast was read as "1. Normal appendix. No bowel obstruction. No bowel wall thickening. 2. Mildly distended, fluid-filled stomach.". The patient was given a total of 8 mg IV zofran, 2L NSS, 12.5 mg IV benadryl, 15 mg IV toradol, 10 mg IV reglan, and 4 mg IV morphine. The ED explained that the patient vomited approximately 1300 cc of brown liquid emesis which was occult blood negative. At the time of the exam the patient was lying in bed in no acute distress. He states that he came into town for a wedding. Last night he was in his normal state of health, he had approximately 4-5 beers and ate a cheeseburger and fries from [employer]. This am he woke with significant mid-lower abdominal pain, nausea, and non-bloody emesis. He abdominal pain was generalized and has not radiated anywhere else. He denies recent fevers, chest pain, SOB, cough, hematemesis, diarrhea, dysuria, hematuria melena, LE swelling, and recent trauma. He smokes approximately 1 pack of cigarettes daily, smokes marijuana daily, and denies consistent alcohol use. He denies experiencing similar symptoms in the past with Marijuana use. His symptoms are significantly improved at the time of the exam. Please refer to Dr. Pak's attestation for any changes to the treatment plan Admission Exam Per Admitting Provider General:In no acute distress, stated age, well-nourished, non-toxic appearing HEENT:Normocephalic, atraumatic, no scleral icterus, pupils around round, symmetrical, and reactive to light, moist mucus membranes, trachea midline, no thyromegaly Chest/Pulm:No respiratory distress, symmetrical chest expansion, clear breath sounds throughout Cardiac:RRR, no murmurs noted Abdomen:Negative for ascites and bruising, normoactive bowel sounds, soft, mildly tender to palpation in the lower abdomen without rebound tenderness Musculoskeletal:Symmetrical and without signs of acute trauma, upper and lower extremities with full ROM, no atrophy, spasticity, or flaccidity Extremities:Radial, dorsalis pedis, and posterior tibial pulses are intact and symmetrical, no edema noted in the BL LE's Skin:Warm, dry, no rashes , lesions, or scars noted Neuro:Alert and oriented to person, place, month, year, and president, no focal defects, no tremors noted Psych:No acute distress, calm and cooperative during the exam Principal Diagnosis Intractable nausea and vomiting likely secondary to viral gastroenteritis versus cannabis hyperemesis. Discharge Exam General: Awake, conversant Heart: S1, S2/regular rate and rhythm, no murmur rubs or gallops Lungs: Clear to auscultation bilaterally. Normal effort Abdomen: Soft/nontender/nondistended. No hepatosplenomegaly Extremities: No clubbing/cyanosis. No edema Behavior: Appropriate, cooperative Discharge Data Allergies Allergy/AdvReac Type Severity Reaction Status Date / Time zofran AdvReac Intermediate Difficulty Uncoded 03/07/23 20:57 Breathing Consultations 03/07/23 20:20 ED Decision to Admit Stat Ordered Studies 03/07/23 14:25 CT abd pelvis IV con only Stat Hospital Course (1) Abdominal pain: abdominal CT was unremarkable other than fluid-filled stomach . After the CT, he vomited. Abdominal pain has resolved today. Advance diet (2) Nausea & vomiting: likely secondary to viral gastroenteritis versus cannabis hyperemesis syndrome the plan was to advance diet slowly today, Discontinue IV fluids. The patient however left AMA before diet could be advanced. He was feeling better today. (3) High anion gap metabolic acidosis: Resolved Discontinued IV with (4) Hypoxia: -Patient had 2 episodes of transient hypoxia immediately after receiving IV zofran in the ED -Nurses confirm these episodes were prior to his large episode of vomiting, patient appeared to be fatigued during the episodes, and patient has been stable on RA while awake -Patient confirms he smokes approximately 1 PPD and smokes marijuana daily, he also confirms he snores while sleeping -Likely related to falling asleep and shallow respirations due to abd pain patient left AMA Total Time Total Time Spent Total Time Spent (In Minutes): 35 Discharge Plan Discharge Items Patient Disposition: Against Medical Advice Reason For Visit: NAUSEA AND VOMITING, HYPOXIA Discharge Diagnosis: Intractable nausea and vomiting possibly secondary to viral gastroenteritis versus cannabis use Activity: Resume your previous activity Non-emergency contact: Primary Care Provider Call non-emergency contact if: you have any medication questions Follow-up/Referrals: PCP,NO [Primary Care Provider] - Diet: Full liquid Addtl Attending Provider Instructions: patient left before instructions were given Pending Studies at Discharge: No Medications and DC Order Prescriptions: No Action None (Patient States No Home Meds) . Qty: 0 Admission Data Admit Date/Time: 03/07/23 21:00 Attending Provider: Za Smith Admit Provider: Ami Pak Primary Care Provider: PCP,NO Other Providers: Ami Pak Coding Level of Care Code 28081 INP/OBS DISCH >30 MIN Diagnoses Abdominal pain R10.9 Nausea & vomiting R11.2 High anion gap metabolic acidosis E87.29 Hypoxia R09.02
--- NOTE | 2023-03-08 22:50 | Electrocardiogram Report ---
Test Reason : Blood Pressure : / mmHG Vent. Rate : 079 BPM Atrial Rate : 079 BPM P-R Int : 170 ms QRS Dur : 090 ms QT Int : 390 ms P-R-T Axes : 075 080 056 degrees QTc Int : 447 ms Sinus rhythm with marked sinus arrhythmia No previous ECGs available Confirmed by Montrell Church ([id number]) on 03/08/2023 10:49:40 PM Referred By: REFERRED SELF Confirmed By:Montrell Church
[2023-03-11 12:17] LABS: Marijuana Quant, GCMS Urine 99 ng/mL (<5)
== END 2023-03-08 13:30 | disposition left against medical advice (07) ==
LOC: 3W 13:50 → ED 13:50 → SUATTDRO 21:00 → 3W 22:10